=== PATIENT | female | born 1960 | race Caucasian/White ===

== ENCOUNTER 2021-07-02 10:49 | Inpatient (IN) | payer OTHER ==
[~2021-07-02] VITALS: Ht 167.6 cm; Wt 82.4 kg
--- NOTE | 2021-07-02 11:34 | NUR ---
PT CAME IN CO CHEST TIGHTNESS THAT "STARTED A FEW WEEKS AGO BUT IT COMES AND GOES". PT DENIES CARDIAC HX. EKG SHOWED AFIB. PT CONNECTED TO MONITORS. BEDSIDE. TOBIN PROVIDED. IV STARTED. LABS DRAWN
[2021-07-02] MEDS ORDERED: SODIUM CHLORIDE FLUSH 10ML SYR IVF ONE (12:00)
[2021-07-02] MEDS ORDERED: DILTIAZEM 5 MG/ML, 5ML IV ONE (12:00)
[2021-07-02] MEDS ORDERED: DILTIAZEM 5 MG/ML, 5ML ONE (12:07)
[2021-07-02 12:31] LABS: INTERNATIONAL NORMALIZED RATIO 1.16 (0.93-1.1); PROTHROMBIN TIME 12.3 Seconds (9.6-11.5)
[2021-07-02 12:36] LABS: BASOPHILS % (AUTO) 0 % (0-1); EOSINOPHILS % (AUTO) 1 % (1-7); LYMPHOCYTES % (AUTO) 23 % (22-44); MEAN CORPUSCULAR HEMOGLOBIN 34.8 pg (27.0-34.8); MEAN CORPUSCULAR HGB CONC 34.4 g/dL (32.4-35.8); MEAN PLATELET VOLUME 9.7 fL (7.4-10.4); MONOCYTES % (AUTO) 16 % (2-9); NEUTROPHILS % (AUTO) 60 % (42-75); PLATELET COUNT 269 x10^3/uL (130-400); RED BLOOD COUNT 4.01 x10^6/uL (3.82-5.3)
[2021-07-02 12:39] LABS: ANION GAP 8 mmol/L (5-15); CALCIUM 10.1 mg/dL (8.5-10.1); CHLORIDE 105 mmol/L (98-107)
[2021-07-02 12:45] LABS: CREATININE 0.93 mg/dL (0.55-1.02); FREE T4 (FREE THYROXINE) 2.36 ng/dL (0.76-1.46)
[2021-07-02 12:57] LABS: TROPONIN I 0.176 ng/mL (0.000-0.045)
[2021-07-02] MEDS ORDERED: ASPIRIN 81 MG TABLET CHEW PO ONE (13:00)
[2021-07-02] MEDS ORDERED: ASPIRIN 81 MG TABLET CHEW ONE (13:08)
--- NOTE | 2021-07-02 13:13 | NUR ---
THIS RN ATTEMPT TO SCAN PATIENT WRIST BAND AND MEDS AND SCANNER IS BROKE. 5 RIGHTS PERFORMED
[2021-07-02] MEDS ORDERED: ACETAMINOPHEN 325 MG TABLET PO PRN (13:30)
[2021-07-02] MEDS ORDERED: SODIUM CHLORIDE FLUSH 10ML SYR IVF PRN (13:30)
[2021-07-02] MEDS ORDERED: LIDODERM 5% PATCH TD PRN (13:30)
[2021-07-02] MEDS ORDERED: ONDANSETRON 2MG/ML, 2ML IVPush PRN (13:30)
[2021-07-02] MEDS ORDERED: hydrALAzine 20 MG/ML, 1ML IVPush PRN (13:30)
[2021-07-02] MEDS ORDERED: ONDANSETRON ODT 4 MG PO PRN (13:30)
[2021-07-02] MEDS ORDERED: ENALAPRILAT 1.25 MG/ML, 2ML IVPush PRN (13:30)
[2021-07-02] MEDS ORDERED: BACLOFEN 10 MG TABLET PO PRN (13:30)
[2021-07-02] MEDS ORDERED: BUTALB/APAP/CAFFEINE 50MG/325MG/40MG PO PRN ×2 (13:30)
[2021-07-02] MEDS ORDERED: DILTIAZEM 125 MG in SODIUM CHLORIDE 0.9% 100 ML IV SCH (13:30)
[2021-07-02] MEDS ORDERED: GUAIFENESIN/DM 200-20MG, 10ML UDC PO PRN (13:30)
[2021-07-02] MEDS ORDERED: HEPARIN 5,000 UNITS/ML, 1ML IV ONE (14:00)
[2021-07-02] MEDS ORDERED: LIDODERM REMOVE PATCH NOTE XX PRN (14:30)
[2021-07-02] MEDS ORDERED: HEPARIN 25,000 UNITS/250ML PMX 250 ML ONE (19:31)
[2021-07-02] MEDS ORDERED: HEPARIN 5,000 UNITS/ML, 1ML ONE (19:31)
[2021-07-02] MEDS: HEPARIN 25,000 UNITS/250ML PMX 250 ML IV PRN (19:41)
[2021-07-02 20:01] VITALS: BP 132/81
[2021-07-02] MEDS: LACTATED RINGERS 1,000 ML IV SCH (20:04)
[2021-07-02] MEDS: MELATONIN 5 MG TABLET PO SCH (20:19)
[2021-07-02 22:53] LABS: TROPONIN I 0.113 ng/mL (0.000-0.045)
[2021-07-03] MEDS: LACTATED RINGERS 1,000 ML IV SCH (00:15)
[2021-07-03] MEDS ORDERED: LEVO25TA2 PO (00:30)
[2021-07-03] MEDS ORDERED: LISI2.5T PO (00:30)
[2021-07-03 01:14] VITALS: BP 122/77
[2021-07-03] MEDS: HEPARIN 5,000 UNITS/ML, 1ML IV PRN ×3 (03:11→18:38)
[2021-07-03 04:38] LABS: BASOPHILS % (AUTO) 1 % (0-1); EOSINOPHILS % (AUTO) 1 % (1-7); LYMPHOCYTES % (AUTO) 44 % (22-44); MEAN CORPUSCULAR HEMOGLOBIN 34.8 pg (27.0-34.8); MEAN CORPUSCULAR HGB CONC 34.8 g/dL (32.4-35.8); MEAN PLATELET VOLUME 8.9 fL (7.4-10.4); MONOCYTES % (AUTO) 13 % (2-9); NEUTROPHILS % (AUTO) 42 % (42-75); PLATELET COUNT 216 x10^3/uL (130-400); RED BLOOD COUNT 3.53 x10^6/uL (3.82-5.3); RED CELL DISTRIBUTION WIDTH 13.4 % (9.6-15.2)
[2021-07-03 04:49] LABS: ALANINE AMINOTRANSFERASE 21 U/L (12-78); ANION GAP 7 mmol/L (5-15); CALCIUM 9.3 mg/dL (8.5-10.1); CHLORIDE 108 mmol/L (98-107); CREATININE 0.79 mg/dL (0.55-1.02)
[2021-07-03 04:54] LABS: ALBUMIN 3.1 g/dL (3.4-5.0); ALKALINE PHOSPHATASE 63 U/L (45-117); BILIRUBIN,TOTAL 0.8 mg/dL (0.2-1.0); TROPONIN I 0.098 ng/mL (0.000-0.045)
[2021-07-03 06:31] VITALS: BP 131/87
[2021-07-03] MEDS: SENNA/DOCUSATE TABLET PO SCH (09:00)
[2021-07-03 12:24] VITALS: BP 139/85
[2021-07-03] MEDS: DILTIAZEM 90 MG TABLET PO SCH ×2 (16:10→20:00)
[2021-07-03 19:55] VITALS: BP 123/72
[2021-07-03] MEDS: MELATONIN 5 MG TABLET PO SCH (20:01)
[2021-07-03] MEDS: HEPARIN 25,000 UNITS/250ML PMX 250 ML IV PRN (23:01)
[2021-07-04 01:39] VITALS: BP 138/93
[2021-07-04 07:34] VITALS: BP 139/91
[2021-07-04] MEDS ORDERED: REGADENOSON 0.4 MG/5 ML SYRINGE ONE (08:23)
[2021-07-04] MEDS: SENNA/DOCUSATE TABLET PO SCH (09:00)
[2021-07-04] MEDS: DILTIAZEM 90 MG TABLET PO SCH (10:23)
[2021-07-04 10:24] VITALS: BP 121/78
[2021-07-04] MEDS ORDERED: RIVA20TA PO (13:33)
[2021-07-04] MEDS ORDERED: LEVO125T PO (13:33)
[2021-07-04 13:45] VITALS: BP 125/74
[2021-07-04] MEDS ORDERED: DILT240C80 PO (15:15)
[2021-07-04] MEDS ORDERED: RIVAROXABAN 20 MG TABLET PO SCH (17:00)
== END 2021-07-04 15:50 | disposition home or self-care (01) | DRG 310 ==
LOC: ED 14:53 → EDIP 15:09 → 5SO 19:52
PROVIDERS: ADMIT Family Medicine; ATTEND Family Medicine
DX: I48.91 Unspecified atrial fibrillation (principal); E03.9 Hypothyroidism, unspecified; E78.00 Pure hypercholesterolemia, unspecified; I10 Essential (primary) hypertension
CPT/HCPCS: 36415; 71045; 78452; 80048; 80053; 82040; 83735; 84100; 84439; 84443; 84481; 84484; 85025; 85520; 85610; 85730; 93005; 93017; 93306; 96374; G0378; J1644; J2785; A9502; J7120